=== PATIENT | female | born 1995 | race Two or more races ===

== ENCOUNTER 2016-12-24 16:56 | Emergency (ER) | payer BC, OTHER ==
[~2016-12-24] VITALS: Ht 165.1 cm; Wt 60.4 kg
[2016-12-24] MEDS ORDERED: SODIUM CHLORIDE 0.9% 1,000 ML IV ONE (17:33)
[2016-12-24] MEDS ORDERED: ONDANSETRON 2MG/ML, 2ML ONE (17:45)
[2016-12-24] MEDS ORDERED: FAMOTIDINE 20 MG/2 ML ONE (17:46)
[2016-12-24 17:50] LABS: HEMATOCRIT 42.5 % (34.6-47.8); HEMOGLOBIN 14.1 g/dL (11.7-16.4); WHITE BLOOD COUNT 8.4 x10^3/uL (3.4-10)
[2016-12-24] MEDS ORDERED: SODIUM CHLORIDE 0.9% 1,000ML IVBOLUS ONE (18:00)
[2016-12-24] MEDS ORDERED: PLEASE ENTER ALLERGIES MC SCH ×2 (18:00)
[2016-12-24] MEDS ORDERED: ONDANSETRON 2MG/ML, 2ML IVPush ONE (18:00)
[2016-12-24] MEDS ORDERED: SODIUM CHLORIDE FLUSH 10ML SYR IVF ONE (18:00)
[2016-12-24] MEDS ORDERED: FAMOTIDINE 20 MG/2 ML IVP ONE (18:00)
[2016-12-24 18:01] LABS: ASPARTATE AMINO TRANSFERASE 15 U/L (15-37); BLOOD UREA NITROGEN 11 mg/dL (7-18)
[2016-12-24 19:43] VITALS: BP 116/68
== END 2016-12-24 19:46 | disposition home or self-care (01) ==
LOC: ED 19:35
DX: N30.01 Acute cystitis with hematuria (principal)
CPT/HCPCS: 36415; 76700; 80053; 81001; 83690; 84703; 85025; 87086; 96361; 96374; 96375; 99285; J2405; J7030; S0028